=== PATIENT | male | born 1985 | race African-American/Black ===

== ENCOUNTER 2016-12-15 01:54 | Emergency (ER) | payer OTHER ==
[~2016-12-15] VITALS: Ht 177.8 cm; Wt 93.0 kg
[~2016-12-15 01:54] MED LIST: CLEOCIN HCL300 MG PO; KEFLEX500 MG PO; NOHOMEMEDICATIONS; NORCO 5-325 TA1 EACH PO; PENICILLIN V P500 MG PO; PERCOCET 5-3251 EACH PO
[2016-12-15] MEDS ORDERED: ULTRAM 50MG TAB50 MG PO (03:13)
[2016-12-15] MEDS ORDERED: NAPROSYN500 MG PO (03:13)
[2016-12-15 03:25] VITALS: BP 120/79
== END 2016-12-15 03:14 | disposition home or self-care (01) ==
LOC: ER 01:54
DX: S60.221A Contusion of right hand, initial encounter (principal); F17.210 Nicotine dependence, cigarettes, uncomplicated; F12.10 Cannabis abuse, uncomplicated; W51.XXXA Accidental striking against or bumped into by another person, initial encounter; Y93.89 Activity, other specified; Y92.89 Other specified places as the place of occurrence of the external cause; Y99.8 Other external cause status